=== PATIENT | female | born 1985 | race Caucasian/White ===

== ENCOUNTER 2017-05-26 12:32 | Emergency (ER) | payer OTHER ==
[2017-05-26] MEDS ORDERED: Lorazepam 1 MG TAB ONE (12:54)
--- NOTE | 2017-06-01 16:48 | EKG ---
Test Reason : Blood Pressure : / mmHG Vent. Rate : 105 BPM Atrial Rate : 105 BPM P-R Int : 120 ms QRS Dur : 086 ms QT Int : 336 ms P-R-T Axes : 067 035 -21 degrees QTc Int : 444 ms Sinus tachycardia Possible Left atrial enlargement T wave abnormality, consider inferior ischemia T wave abnormality, consider anterolateral ischemia Abnormal ECG Confirmed by VENECIA GARY, CHERRIE ([id number]), editor publications FRANCY GREGORY ([id number]) on 06/01/2017 4:47:16 PM Referred By: VENECIA Confirmed By:CHERRIE CUADRA MD
== END 2017-05-26 15:12 | disposition home or self-care (01) ==
LOC: SCSER 12:32
DX: B34.9 Viral infection, unspecified (principal); J45.909 Unspecified asthma, uncomplicated; F31.9 Bipolar disorder, unspecified; Z79.899 Other long term (current) drug therapy
CPT/HCPCS: 93005; 94640; J7620